=== PATIENT | female | born 1950 ===

== ENCOUNTER 2020-01-21 12:30 | Emergency (ER) | payer OTHER ==
[2020-01-21] MEDS ORDERED: ACETAMINOPHEN 500 MG TABLET (FP) PO ONE (12:57)
[2020-01-21 12:59] VITALS: BMI 26.6
[2020-01-21] MEDS ORDERED: ACETAMINOPHEN 500 MG TABLET (FP) ONE (13:00)
[2020-01-21] MEDS ORDERED: ACETAMINOPHEN 325 MG TABLET (FP) PO ONE (13:17)
[2020-01-21 14:01] LABS: BASO % 1.1 % (0-2.0); EOS % 0.2 % (0-4.5); HEMATOCRIT 35.9 % (32.4-45.2); HEMOGLOBIN 11.8 GM/dl (10.7-15.3); LYMPH % 16.1 % (8-40); MCH 27.9 pg (25.7-33.7); MCHC 32.9 g/dl (32.0-36.0); MEAN CELL VOLUME 84.8 fl (80-96); MEAN PLT VOLUME 7.9 fl (7.5-11.1); MONO % 11.3 % (3.8-10.2); NEUT % 71.3 % (42.8-82.8); PLATELET COUNT 400 K/MM3 (134-434); RBC 4.23 M/mm3 (3.60-5.2); WHITE BLOOD COUNT 8.2 K/mm3 (4.0-10.8)
[2020-01-21 14:18] LABS: ALBUMIN 3.5 g/dl (3.4-5.0); BILIRUBIN,TOTAL 0.5 mg/dl (0.2-1); CALCIUM 8.3 mg/dl (8.5-10); CREATININE 0.6 mg/dl (0.55-1.3); POTASSIUM 4.2 mmol/L (3.5-5.1); TOT PROT 7.7 g/dl (6.4-8.2)
[2020-01-21 14:21] LABS: ACTIVATED PTT 24.5 SECONDS (25.2-36.5)
[2020-01-21 14:29] LABS: INR 1.14 (0.82-1.09); PROTHROMBIN TIME (PATIENT) 12.7 SEC (10.2-13.0)
[2020-01-21 14:39] LABS: EPITHELIAL CELLS FEW /hpf
[2020-01-21 14:46] LABS: VENOUS BASE EXCESS -1.1 mmol/L (-2-2); VENOUS O2 SATURATION 87.9 % (70-80); VENOUS PH 7.414 (7.310-7.410)
[2020-01-21 15:13] VITALS: BP 146/72; PULSE 83; TEMP 98.6
[2020-01-21] MEDS ORDERED: ALBUTEROL SO4 HFA INHALER IH PRN (19:38)
[2020-01-21 21:01] LABS: MAGNESIUM 2.3 mg/dL (1.8-2.4)
[2020-01-21] MEDS ORDERED: ASCORBIC ACID 500 MG TABLET (FP) PO SCH (22:00)
[2020-01-22] MEDS ORDERED: ZINC SULFATE 220 MG CAPSULE (FP) PO SCH (10:00)
[2020-01-22] MEDS ORDERED: amLODIPine BESYLATE 5 MG TABLET (FP) PO SCH (10:00)
[2020-01-22] MEDS ORDERED: CHOLECALCIFEROL (VIT D3) 1,000 UNIT (25 MCG) TABLET PO SCH (10:00)
[2020-01-22] MEDS ORDERED: ENOXAPARIN NA (PORCINE) 40 MG/0.4 ML DISP.SYRIN SQ SCH (10:00)
== END 2020-01-21 16:22 | disposition home or self-care (01) ==
LOC: FER 12:30
DX: U07.1 COVID-19 (principal)
CPT/HCPCS: 36415; 71045-TC-FY; 80053; 81003; 81015; 82550; 82728; 82803; 83605; 83615; 83735; 84484; 85025; 85610; 85730; 86140; 87040; 87086; 87804; 93005; 99285-25; C9803; U0003